=== PATIENT | female | born 2000 | race African-American/Black ===

== ENCOUNTER 2025-03-19 11:58 | Emergency (ER) | payer SELFPAY ==
[~2025-03-19] VITALS: Ht 167.6 cm; Wt 73.0 kg
[2025-03-19 12:04] VITALS: BP 129/68; PULSE 76; RESP 20; TEMP 36.7; O2SAT 100
== END 2025-03-19 13:05 | disposition left against medical advice (07) ==
LOC: ER 11:58
DX: S69.80XA Other specified injuries of unspecified wrist, hand and finger(s), initial encounter (principal); Z53.21 Procedure and treatment not carried out due to patient leaving prior to being seen by health care provider; X58.XXXA Exposure to other specified factors, initial encounter; Y93.89 Activity, other specified; Y92.89 Other specified places as the place of occurrence of the external cause; Y99.8 Other external cause status